=== PATIENT | female | born 1955 ===

== ENCOUNTER 2021-08-31 17:54 | Emergency (ER) | payer MEDICAID, OTHER ==
[~2021-08-31] VITALS: Ht 157.4 cm; Wt 52.8 kg
[2021-08-31] MEDS ORDERED: NS IV 1000 ML 1,000 ML IV STA (17:57)
--- NOTE | 2021-08-31 18:03 | ED Abdominal Pain ---
General Stated Complaint: DIARRHEA Source of Information: Patient Exam Limitations: No Limitations History of Present Illness Date Seen by Provider: Aug 31, 2021 Time Seen by Provider: 18:01 Initial Comments Patient is a 66-year-old female with a history of throat cancer presents to ED by EMS for diarrhea and shortness of breath. Shortness of breath started 1 hour ago. She reports coughing up mucus. Patient has a stoma on the front part of her neck. History of laryngectomy. Patient reports diarrhea over the past 2 days. Denies any blood or mucus. She had 2 episodes of vomiting. She felt nauseous was given Zofran by EMS in route. She reports generalized abdominal discomfort. Denies history of abdominal surgery. No urinary symptoms. She is not able to talk but communicates with writing. Denies chest pain, headache, dizziness, visual changes. Denies recent antibiotic use. Allergies and Home Medications Allergies Coded Allergies: No Known Drug Allergies (Unverified , 08/31/21) Patient Home Medication List Home Medication List Reviewed: Yes Magnesium Oxide (Magnesium) 400 Mg Magnesium Tablet, 400 MG PO DAILY Prescribed by: JAY JAIMES on 08/31/212042 Potassium Chloride (K-Tab ER) 20 Meq Tablet.er, 40 MEQ PO DAILY Prescribed by: JAY JAIMES on 08/31/212042 Review of Systems Review of Systems Constitutional: No chills, No diaphoresis, No malaise EENTM: No Eye Pain Respiratory: Denies Cough, Denies Shortness of Air Cardiovascular: Denies Edema Gastrointestinal: Abdominal Pain, Diarrhea, Nausea; Denies Vomiting Genitourinary: Denies Burning, Denies Discharge, Denies Frequency Musculoskeletal: No back pain, No joint pain All Other Systems Reviewed Negative Unless Noted: Yes Physical Exam Vital Signs Vital Signs - First Documented 08/31/21 18:03 Temp 36.8 Pulse 70 Resp 22 B/P (MAP) 127/82 (97) Pulse Ox 100 O2 Delivery Room Air Capillary Refill : Height/Weight/BMI Height: '" Weight: lbs. oz. 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, no motor/sensory deficits, alert, normal mood/affect, oriented x 3 Skin: normal color, warm/dry Progress/Results/Core Measures Results/Orders Lab Results Laboratory Tests Test 08/31/21 18:20 08/31/21 18:23 Range/Units White Blood Count 8.1 4.3-11.0 10^3/uL Red Blood Count 4.36 3.80-5.11 10^6/uL Hemoglobin 14.0 11.5-16.0 g/dL Hematocrit 40 35-52 % Mean Corpuscular Volume 93 80-99 fL Mean Corpuscular Hemoglobin 32 25-34 pg Mean Corpuscular Hemoglobin Concent 35 32-36 g/dL Red Cell Distribution Width 12.6 10.0-14.5 % Platelet Count 201 130-400 10^3/uL Mean Platelet Volume 10.1 9.0-12.2 fL Immature Granulocyte % (Auto) 0 % Neutrophils (%) (Auto) 87 H 42-75 % Lymphocytes (%) (Auto) 7 L 12-44 % Monocytes (%) (Auto) 5 0-12 % Eosinophils (%) (Auto) 0 0-10 % Basophils (%) (Auto) 0 0-10 % Neutrophils # (Auto) 7.1 1.8-7.8 10^3/uL Lymphocytes # (Auto) 0.6 L 1.0-4.0 10^3/uL Monocytes # (Auto) 0.4 0.0-1.0 10^3/uL Eosinophils # (Auto) 0.0 0.0-0.3 10^3/uL Basophils # (Auto) 0.0 0.0-0.1 10^3/uL Immature Granulocyte # (Auto) 0.0 0.0-0.1 10^3/uL Neutrophils % (Manual) 88 % Lymphocytes % (Manual) 8 % Monocytes % (Manual) 4 % Blood Morphology Comment NORMAL Sodium Level 139 135-145 MMOL/L Potassium Level 3.3 L 3.6-5.0 MMOL/L Chloride Level 100 98-107 MMOL/L Carbon Dioxide Level 20 L 21-32 MMOL/L Anion Gap 19 H 5-14 MMOL/L Blood Urea Nitrogen 16 7-18 MG/DL Creatinine 0.86 0.60-1.30 MG/DL Estimat Glomerular Filtration Rate 75 BUN/Creatinine Ratio 19 Glucose Level 81 70-105 MG/DL Calcium Level 8.7 8.5-10.1 MG/DL Corrected Calcium 8.7 8.5-10.1 MG/DL Magnesium Level 1.2 L 1.6-2.4 MG/DL Total Bilirubin 0.9 0.1-1.0 MG/DL Aspartate Amino Transf (AST/SGOT) 24 5-34 U/L Alanine Aminotransferase (ALT/SGPT) 29 0-55 U/L Alkaline Phosphatase 47 40-136 U/L Total Protein 7.3 6.4-8.2 GM/DL Albumin 4.0 3.2-4.5 GM/DL Lipase 14 8-78 U/L Urine Color YELLOW Urine Clarity CLEAR Urine pH 5.5 5-9 Urine Specific [place] 1.025 H 1.016-1.022 Urine Protein NEGATIVE NEGATIVE Urine Glucose (UA) NEGATIVE NEGATIVE Urine Ketones 3+ H NEGATIVE Urine Nitrite NEGATIVE NEGATIVE Urine Bilirubin 1+ H NEGATIVE Urine Urobilinogen 0.2 < = 1.0 MG/DL Urine Leukocyte Esterase NEGATIVE NEGATIVE Urine RBC (Auto) NEGATIVE NEGATIVE Urine RBC NONE /HPF Urine WBC RARE /HPF Urine Squamous Epithelial Cells 5-10 /HPF Urine Crystals NONE /LPF Urine Bacteria FEW H /HPF Urine Casts PRESENT /LPF Urine Hyaline Casts 5-10 H /LPF Urine Mucus MODERATE H /LPF Urine Culture Indicated YES My Orders Orders - EMA FRIAS PA Cbc With Automated Diff (08/31/21 17:57) Comprehensive Metabolic Panel (08/31/21 17:57) Lipase (08/31/21 17:57) Magnesium (08/31/21 17:57) Ua Culture If Indicated (08/31/21 17:57) Chest 1 View, Ap/Pa Only (08/31/21 17:57) Ns Iv 1000 Ml (Sodium Chloride 0.9%) (08/31/21 17:57) Iv/Invasive Line Insertion .IV start (08/31/21 18:23) Manual Differential (08/31/21 18:20) Urine Culture (08/31/21 18:23) Magnesium 1 Gm/100 Ml Ivpb (Magnesium [place] (08/31/21 19:15) Potassium Chloride (Tablet) (K Dur Table (08/31/21 19:15) Ct Abdomen/Pelvis W (08/31/21 19:57) Fentanyl Inj (Sublimaze Injection) (08/31/21 19:58) Iohexol Injection (Omnipaque 350 Mg/Ml 1 (08/31/21 20:15) Ns (Ivpb) (Sodium Chloride 0.9% Ivpb Bag (08/31/21 20:15) Medications Given in ED Current Medications Medications Dose Ordered Sig/Velia Route Start Time Stop Time Status Last Admin Dose Admin Iohexol 100 ml ONCE ONCE IV 08/31/21 20:15 08/31/21 20:16 DC 08/31/21 20:21 67 ML Magnesium Sulfate/ Dextrose 100 ml @ 100 mls/hr ONCE ONCE IV 08/31/21 19:15 08/31/21 20:14 DC 08/31/21 19:30 100 MLS/HR Potassium Chloride 20 meq ONCE ONCE PO 08/31/21 19:15 08/31/21 19:16 DC 08/31/21 19:30 20 MEQ Sodium Chloride 100 ml ONCE ONCE IV 08/31/21 20:15 08/31/21 20:16 DC 08/31/21 20:21 80 ML Vital Signs/I&O 08/31/21 08/31/21 18:03 20:51 Temp 36.8 Pulse 70 79 Resp 22 22 B/P (MAP) 127/82 (97) 127/82 Pulse Ox 100 98 O2 Delivery Room Air Room Air Departure Communication (PCP) Patient with a history of throat cancer with laryngectomy. She does have a stoma to the front part of her neck. She reports short of breath 1 hour ago. This improves with coughing up mucus. Oxygen 99% on room air. She has had diarrhea over the past 2 days with 2 episodes of vomiting. No bloody stools or mucousy stools. Generalized abdominal discomfort. CT abdomen pelvis negative for acute abnormality. Pulmonary nodules noted. Outpatient follow-up for further evaluation of the nodules. Lab work was otherwise unremarkable besides magnesium 1.2 potassium of 3.3. Was given oral potassium and IV magnesium here. Will discharge with a few days of magnesium and potassium likely secondary to the diarrhea. She had no episodes of diarrhea here. She does not appear toxic or septic. Discussed importance of hydration. Was given a liter of fluid. Patient was tolerating p.o. fluids. She refused a second liter of fluids and was wanting to be discharged. Recommend hydration. If any worsening symptoms return back to ED for further evaluation. Likely viral in nature. No history inflammatory bowel disease. Exam limited as patient has to communicate through writing. Urinalysis without strong evidence infection. Culture pending. No urinary symptoms Impression Primary Impression: Diarrhea Disposition: 01 HOME, SELF-CARE Condition: Stable Departure-Patient Inst. Decision time for Depature: 20:40 Referrals: [facility] Patient Instructions: Diarrhea, Adult ED Scripts Potassium Chloride (K-Tab ER) 20 Meq Tablet.er 40 MEQ PO DAILY for 3 Days, #6 TAB Prov: EMA FRIAS 08/31/21 Magnesium Oxide (Magnesium) 400 Mg Magnesium Tablet 400 MG PO DAILY for 3 Days, #3 TAB Prov: EMA FRIAS 08/31/21 EMA FRIAS Aug 31, 2021 18:03
[2021-08-31 18:38] LABS: CLARITY,URINE CLEAR; COLOR,URINE YELLOW; GLUCOSE, URINE (UA) NEGATIVE (NEGATIVE); KETONES,URINE 3+ (NEGATIVE); LEUKOCYTE ESTERASE ,URINE NEGATIVE (NEGATIVE); NITRITE,URINE NEGATIVE (NEGATIVE); PH,URINE 5.5 (5-9); PROTEIN,URINE NEGATIVE (NEGATIVE)
[2021-08-31 18:38] LABS: BASOPHILS % (AUTO) 0 % (0-10); EOSINOPHILS % (AUTO) 0 % (0-10); HEMATOCRIT 40 % (35-52); LYMPHOCYTES # (AUTO) 0.6 10^3/uL (1.0-4.0); LYMPHOCYTES % (AUTO) 7 % (12-44); MEAN CORPUSCULAR HEMOGLOBIN 32 pg (25-34); MEAN CORPUSCULAR HGB CONC 35 g/dL (32-36); MEAN CORPUSCULAR VOLUME 93 fL (80-99); MEAN PLATELET VOLUME 10.1 fL (9.0-12.2); MONOCYTES # (AUTO) 0.4 10^3/uL (0.0-1.0); MONOCYTES % (AUTO) 5 % (0-12); NEUTROPHILS # (AUTO) 7.1 10^3/uL (1.8-7.8); NEUTROPHILS % (AUTO) 87 % (42-75); PLATELET COUNT 201 10^3/uL (130-400); WHITE BLOOD COUNT 8.1 10^3/uL (4.3-11.0)
--- NOTE | 2021-08-31 18:45 | Diagnostic Imaging Report ---
EXAM: CHEST 1 VIEW, AP/PA ONLY INDICATION: Cough. Diarrhea. Abdominal pain. History of throat cancer. COMPARISON: None. FINDINGS: Normal heart size and central pulmonary vascularity. No focal pulmonary opacity. No pleural effusion or pneumothorax. No acute osseous findings. IMPRESSION: No acute cardiopulmonary findings. Dictated by: Dictated on workstation # [id number]
[2021-08-31 18:52] LABS: BACTERIA,URINE FEW /HPF; BILIRUBIN,URINE 1+ (NEGATIVE); WBC,URINE RARE /HPF
[2021-08-31 18:58] LABS: POTASSIUM 3.3 MMOL/L (3.6-5.0)
[2021-08-31 18:59] LABS: CALCIUM 8.7 MG/DL (8.5-10.1)
[2021-08-31 19:00] LABS: TOTAL PROTEIN 7.3 GM/DL (6.4-8.2)
[2021-08-31 19:02] LABS: BILIRUBIN,TOTAL 0.9 MG/DL (0.1-1.0)
[2021-08-31 19:04] LABS: CREATININE SERUM 0.86 MG/DL (0.60-1.30)
[2021-08-31 19:07] LABS: MAGNESIUM 1.2 MG/DL (1.6-2.4)
[2021-08-31 19:14] LABS: LYMPHOCYTES % (MANUAL) 8 %; MONOCYTES % (MANUAL) 4 %
[2021-08-31 19:15] LABS: NEUTROPHILS % (MANUAL) 88 %; RBC MORPH NORMAL
[2021-08-31] MEDS ORDERED: MAGNESIUM 1 GM/100 ML IVPB 100 ML IV ONE (19:15)
[2021-08-31] MEDS ORDERED: KCL 20 MEQ TAB (K-DUR) PO ONE (19:15)
[2021-08-31] MEDS ORDERED: fentaNYL INJ 100 MCG/2 ML AMP IVP STA (19:58)
[2021-08-31] MEDS ORDERED: IOHEXOL 350 MG/ML 100 ML (OMNIPAQUE 350) VIAL IV ONE (20:15)
[2021-08-31] MEDS ORDERED: NS 100 ML (IVPB) BAG IV ONE (20:15)
--- NOTE | 2021-08-31 20:30 | Diagnostic Imaging Report ---
PROCEDURE: CT abdomen and pelvis with contrast. TECHNIQUE: Multiple contiguous axial images were obtained through the abdomen and pelvis after administration of intravenous contrast. Auto Exposure Controls were utilized during the CT exam to meet ALARA standards for radiation dose reduction. All CT scans use one or more of the following dose optimizing techniques: automated exposure control, MA and/or KvP adjustment based on patient size and exam type or iterative reconstruction. INDICATION: Abdominal pain. Diarrhea. History of throat cancer. COMPARISON: None. FINDINGS: 0.4 cm solid pulmonary nodule in the right lung base along the major fissure. 0.5 cm solid pulmonary nodule in the lateral left lower lobe. The liver, gallbladder, pancreas, adrenals, kidneys, collecting systems and urinary bladder are negative. Calcified granulomas in the spleen. The appendix is not well seen and may be surgically absent. No suspicious inflammatory findings in the region of the cecum. No free intraperitoneal air or fluid. No lymphadenopathy. The reproductive structures are grossly negative. No evidence of bowel obstruction. Advanced atherosclerotic calcifications. Chronic appearing anterior wedging of L3 resulting in approximately 10% height loss. No acute osseous findings. IMPRESSION: 1. No acute CT findings in the abdomen or pelvis. 2. Indeterminate solid pulmonary nodules in the lung bases, as above. Recommend follow-up with noncontrast chest CT in 3 months. Dictated by: Dictated on workstation # [id number]
[2021-08-31] MEDS ORDERED: POTA-53 PO (20:43)
[2021-08-31] MEDS ORDERED: MAGN400T39 PO (20:43)
[2021-08-31 20:51] VITALS: BP 127/82
== END 2021-08-31 20:58 | disposition home or self-care (01) ==
LOC: ER 17:55
DX: R19.7 Diarrhea, unspecified (principal); R06.02 Shortness of breath; Z85.21 Personal history of malignant neoplasm of larynx; Z90.02 Acquired absence of larynx
CPT/HCPCS: 36415; 71045; 74177; 80053; 81000; 83690; 83735; 85007; 85027; 87088; 96374